=== PATIENT | female | born 1965 | race Caucasian/White ===

== ENCOUNTER 2017-08-04 20:47 | Inpatient (IN) | payer OTHER ==
[2017-08-04] MEDS ORDERED: methylPREDNISolone SOD SUCCI 125 MG/2 ML VIAL IV STA (22:15)
[2017-08-04] MEDS ORDERED: LEVOFLOXACIN 750MG-D5W PMX 750 MG in DEXTROSE/WATER 1 150ML.BAG IVPB STA (22:15)
[2017-08-04] MEDS ORDERED: SODIUM CHLORIDE 0.9% 1,000 ML IV STA (22:15)
[2017-08-04] MEDS ORDERED: IPRATROPIUM-ALBUTEROL 3 ML NEB INHALATION STA (22:15)
[2017-08-04] MEDS ORDERED: SODIUM CHLORIDE 0.9% 500 ML IV STA (22:15)
[2017-08-04] MEDS ORDERED: ACETAMINOPHEN TAB 500 MG TAB PO STA (22:16)
[2017-08-04] MEDS ORDERED: KETOROLAC 30 MG/ML 1 ML VIAL IVP STA (22:16)
--- NOTE | 2017-08-04 22:23 | ED ---
SOB HPI - General Chief Complaint: Shortness of Breath Stated Complaint: Diff Breathing Time Seen by Provider: 08/04/17 22:05 Source: patient Mode of arrival: ambulatory Limitations: no limitations - History of Present Illness Initial Comments: This 51-year-old white female presents with a complaint of shortness of breath. She has had a cough with occasional yellow to greenish production. She's felt some chills but has not measured any temperature. She has some chronic shortness of breath due to her underlying COPD but states that her symptoms are worse over the past couple of days. She's had occasional pain into her bilateral lower chest. She does present with a fever. She states that the humidity and high temperatures have been causing her COPD it is the worse recently. She's been taking her breathing treatments with limited relief. She denies any leg pain or swelling. No other complaints or modifying factors. - Related Data Home Medications Medication Instructions Recorded Confirmed Aspirin 81 mg PO DAILY 10/30/16 08/04/17 Cholecalciferol [Vitamin D3] 5,000 unit PO DAILY 10/30/16 08/04/17 Gabapentin [Neurontin] 600 mg PO TID PRN 10/30/16 08/04/17 HYDROcodone/APAP 5-325MG [[place] 1 tab PO DAILY PRN 10/30/16 08/04/17 5-325] Levothyroxine Sodium [Synthroid] 75 mcg PO DAILY 10/30/16 08/04/17 Mometasone/Formoterol [Dulera 200 2 puff INHALATION RT-BID 10/30/16 08/04/17 Mcg/5 Mcg Inhaler] Tiotropium 18 Mcg/Puff [Spiriva] 1 cap INHALATION RT-DAILY 10/30/16 08/04/17 traMADol HCL [Ultram] 50 mg PO TID PRN 10/30/16 08/04/17 Albuterol Inhaler [Ventolin Hfa 2 puff INHALATION RT-QID PRN 08/04/17 08/04/17 Inhaler] Albuterol Nebulized [Ventolin 2.5 mg INHALATION RT-QID PRN 08/04/17 08/04/17 Nebulized] Butalb/APAP/Caff 50-325-40Mg 1 tab PO Q6H PRN 08/04/17 08/04/17 [Fioricet 50-325-40] Propranolol HCl [Inderal Xl] 80 mg PO DAILY 08/04/17 08/04/17 traMADol HCL [Ultram] 100 mg PO TID PRN 08/04/17 08/04/17 Allergies Allergy/AdvReac Type Severity Reaction Status Date / Time No Known Allergies Allergy Verified 08/04/17 23:09 Review of Systems ROS Statement: Those systems with pertinent positive or pertinent negative responses have been documented in the HPI. ROS Other: All systems not noted in ROS Statement are negative. Past Medical History Past Medical History: COPD Additional Past Medical History / Comment(s): will solis History of Any Multi-Drug Resistant Organisms: None Reported Past Surgical History: Section Past Psychological History: Anxiety, Depression Smoking Status: Current every day smoker Past Alcohol Use History: None Reported Past Drug Use History: None Reported General Exam - General Exam Comments Initial Comments: GENERAL: The patient is well nourished and well hydrated. VITAL SIGNS: Heart rate, blood pressure, respiratory rate reviewed as recorded in nurse's notes. EYES: Pupils are round and reactive. Extraocular movements are intact. No conjunctival / lid redness or swelling. ENT: No external evidence of injury, swelling, or ecchymosis. Airway is patent. Throat is clear. NECK: Nontender. No swelling or evidence of injury. No subcutaneous emphysema. Trachea is midline. No thyroid mass. HEART: Regular rate and rhythm. Good peripheral pulses. LUNGS/CHEST: There is decreased aeration noted bilaterally with occasional wheeze. No ecchymosis, subcutaneous emphysema, or tenderness. ABDOMEN: Abdomen soft without tenderness. No palpable masses or organomegaly. No peritoneal signs. No abdominal wall swelling or ecchymosis. EXTREMITIES: No extremity tenderness. Normal muscle tone and function. No thoracolumbar tenderness. NEUROLOGIC: Sensation is grossly intact. Cranial nerve exam reveals face is symmetrical, tongue is midline, speech is clear. SKIN: No abrasions or ecchymosis is noted. No induration or masses noted. PSYCHIATRIC: Alert and oriented. Appropriate behavior and judgment. Limitations: no limitations Course Vital Signs 08/04/17 08/04/17 08/04/17 21:35 22:34 22:38 Temperature 100.7 F H Pulse Rate 95 80 100 Respiratory 22 22 Rate Blood Pressure 114/63 114/68 O2 Sat by Pulse 95 98 Oximetry 08/04/17 08/04/1717 23:13 23:22 00:13 Temperature 102.4 F H Pulse Rate 100 86 Respiratory 22 Rate Blood Pressure 102/58 O2 Sat by Pulse 97 Oximetry Medical Decision Making - Medical Decision Making The patient was seen and examined. All diagnostics were reviewed. An IV is established and she does receive some Levaquin and Toradol and IV fluids intravenously. She also received some Tylenol orally for her fever. She receives 2 DuoNeb breathing treatments. The chest x-ray does show evidence of a right lower lobe infiltrate/pneumonia. The laboratory shows evidence for leukocytosis. It is felt as though she does have underlying COPD and now has a pneumonia as well and that she would require admission to the hospital. The case is discussed with internal medicine and they're agreeable to admission. - Lab Data Result diagrams: 08/04/17 22:28 08/04/17 22:28 Lab Results 08/04/17 08/04/17 08/04/17 Range/Units 22:28 22:28 22:28 WBC 15.6 H (3.8-10.6) k/uL RBC 4.72 (3.80-5.40) m/uL Hgb 14.1 (11.4-16.0) gm/dL Hct 42.3 (34.0-46.0) % MCV 89.5 (80.0-100.0) fL MCH 29.8 (25.0-35.0) pg MCHC 33.3 (31.0-37.0) g/dL RDW 13.7 (11.5-15.5) % Plt Count 251 (150-450) k/uL Neutrophils % 90 % Lymphocytes % 5 % Monocytes % 4 % Eosinophils % 1 % Basophils % 0 % Neutrophils # 14.0 H (1.3-7.7) k/uL Lymphocytes # 0.8 L (1.0-4.8) k/uL Monocytes # 0.6 (0-1.0) k/uL Eosinophils # 0.1 (0-0.7) k/uL Basophils # 0.0 (0-0.2) k/uL PT (9.0-12.0) sec INR (<1.2) APTT (22.0-30.0) sec Sodium 135 L (137-145) mmol/L Potassium 3.7 (3.5-5.1) mmol/L Chloride 99 (98-107) mmol/L Carbon Dioxide 23 (22-30) mmol/L Anion Gap 13 mmol/L BUN 5 L (7-17) mg/dL Creatinine 0.70 (0.52-1.04) mg/dL Est GFR (MDRD) Af Amer >60 (>60 ml/min/1.73 sqM) Est GFR (MDRD) Non-Af >60 (>60 ml/min/1.73 sqM) Glucose 102 H (74-99) mg/dL Calcium 9.4 (8.4-10.2) mg/dL Total Bilirubin 0.8 (0.2-1.3) mg/dL AST 30 (14-36) U/L ALT 73 H (9-52) U/L Alkaline Phosphatase 90 (38-126) U/L Total Creatine Kinase 28 L (30-135) U/L CK-MB (CK-2) 0.4 (0.0-2.4) ng/mL CK-MB (CK-2) Rel Index 1.4 Troponin I <0.012 (0.000-0.034) ng/mL Total Protein 6.5 (6.3-8.2) g/dL Albumin 3.7 (3.5-5.0) g/dL 08/04/17 Range/Units 22:28 WBC (3.8-10.6) k/uL RBC (3.80-5.40) m/uL Hgb (11.4-16.0) gm/dL Hct (34.0-46.0) % MCV (80.0-100.0) fL MCH (25.0-35.0) pg MCHC (31.0-37.0) g/dL RDW (11.5-15.5) % Plt Count (150-450) k/uL Neutrophils % % Lymphocytes % % Monocytes % % Eosinophils % % Basophils % % Neutrophils # (1.3-7.7) k/uL Lymphocytes # (1.0-4.8) k/uL Monocytes # (0-1.0) k/uL Eosinophils # (0-0.7) k/uL Basophils # (0-0.2) k/uL PT 11.1 (9.0-12.0) sec INR 1.1 (<1.2) APTT 30.7 H (22.0-30.0) sec Sodium (137-145) mmol/L Potassium (3.5-5.1) mmol/L Chloride (98-107) mmol/L Carbon Dioxide (22-30) mmol/L Anion Gap mmol/L BUN (7-17) mg/dL Creatinine (0.52-1.04) mg/dL Est GFR (MDRD) Af Amer (>60 ml/min/1.73 sqM) Est GFR (MDRD) Non-Af (>60 ml/min/1.73 sqM) Glucose (74-99) mg/dL Calcium (8.4-10.2) mg/dL Total Bilirubin (0.2-1.3) mg/dL AST (14-36) U/L ALT (9-52) U/L Alkaline Phosphatase (38-126) U/L Total Creatine Kinase (30-135) U/L CK-MB (CK-2) (0.0-2.4) ng/mL CK-MB (CK-2) Rel Index Troponin I (0.000-0.034) ng/mL Total Protein (6.3-8.2) g/dL Albumin (3.5-5.0) g/dL Disposition Clinical Impression: Fever, COPD exacerbation, Pneumonia, Leukocytosis Disposition: ADMITTED IP TO THIS [facility] Condition: Fair Time of Disposition: 00:27 Decision Date: 08/05/17 Decision Time: 00:27
[2017-08-04 22:45] LABS: Basophils % (A) 0 %; CHCM 33.7; Eosinophils # (A) 0.1 k/uL (0-0.7); Eosinophils % (A) 1 %; HCT 42.3 % (34.0-46.0); HDW 2.18; HGB 14.1 gm/dL (11.4-16.0); Luc # (Auto) 0.12; Luc % (Auto) 1; Lymphocytes # (A) 0.8 k/uL (1.0-4.8); Lymphocytes % (A) 5 %; MCH 29.8 pg (25.0-35.0); MCHC 33.3 g/dL (31.0-37.0); MCV 89.5 fL (80.0-100.0); Mean Platelet Volume 7.2; Monocytes # (A) 0.6 k/uL (0-1.0); Monocytes % (A) 4 %; Neutrophils % (A) 90 %; RBC 4.72 m/uL (3.80-5.40); RDW 13.7 % (11.5-15.5); WBC 15.6 k/uL (3.8-10.6); WBC (Perox) 15.65
[2017-08-04 22:55] LABS: INR 1.1 (<1.2); Prothrombin Time 11.1 sec (9.0-12.0)
[2017-08-04 23:03] LABS: ALT 73 U/L (9-52); AST 30 U/L (14-36); Alkaline Phosphatase 90 U/L (38-126); Anion Gap 13 mmol/L; Blood Urea Nitrogen 5 mg/dL (7-17); Calcium 9.4 mg/dL (8.4-10.2); Carbon Dioxide 23 mmol/L (22-30); Chloride 99 mmol/L (98-107); Glucose 102 mg/dL (74-99); Non-African American GFR(MDRD) >60 (>60 ml/min/1.73 sqM); Potassium 3.7 mmol/L (3.5-5.1); Sodium 135 mmol/L (137-145); Total Bilirubin 0.8 mg/dL (0.2-1.3); Total Protein 6.5 g/dL (6.3-8.2)
[2017-08-04 23:11] LABS: Creatine Kinase 28 U/L (30-135)
[2017-08-04 23:19] LABS: Partial Thromboplastin Time 30.7 sec (22.0-30.0)
[2017-08-04 23:24] LABS: Creatine Kinase MB 0.4 ng/mL (0.0-2.4); Troponin I <0.012 ng/mL (0.000-0.034)
--- NOTE | 2017-08-04 23:55 | XR ---
EXAMINATION TYPE: XR chest 2V DATE OF EXAM: 08/04/2017 COMPARISON: 07/21/2017 HISTORY: Difficulty breathing TECHNIQUE: Frontal and lateral views of the chest are obtained. FINDINGS: There is some patchy infiltrate in the right midlung in the superior segment of the right lower lobe. There is pulmonary hyperinflation and flattening of the diaphragm. Heart size is normal. There is no heart failure. There are chest leads. Bony thorax is intact. IMPRESSION: There is new right lower lobe pneumonia compared to last exam. COPD. Normal heart.
[2017-08-05] MEDS ORDERED: PNEUMONIA PROTOCOL UTILIZED 1 EACH MISC PO PRN (00:27)
[2017-08-05] MEDS ORDERED: traMADol 50 MG TAB PO PRN (00:29)
[2017-08-05] MEDS ORDERED: BUTALB/APAP/CAFF 50-325-40MG TAB PO PRN (00:29)
[2017-08-05] MEDS ORDERED: GABAPENTIN 300 MG CAP PO PRN (00:29)
[2017-08-05] MEDS ORDERED: SODIUM CHLORIDE 0.9% 1,000 ML IV ONE (01:41)
--- NOTE | 2017-08-05 01:44 | P.HPIM ---
History of Present Illness H&P Date: 08/05/17 Chief Complaint: Shortness of breath and cough The patient is a 51-year-old female with a past medical history of COPD, not known to be auction dependent who presents to the ER with chief complaint of progressive exertional dyspnea over the last week with intermittently productive cough that started yesterday with subjective fevers chills night sweats and some nausea. The patient is a former smoker noted to be in remission for the last 2 months also complains of diffuse muscle aches joint aches and back pain. She reports increasing shortness of breath with increasing humidity that we've been experiencing over the last few days she denies any sick contacts or recent travel. She denies any other complaints or modifying or mitigating factors. In the ER she had routine labs chest x-ray was consistent with a right middle lobe infiltrate with a leukocytosis of 15.6 and a fever of 102.4. She was started on Solu-Medrol Levaquin and given breathing treatments and placed on supplemental oxygen in the ER Review of Systems All other 14 point review of systems are negative except per HPI Past Medical History Past Medical History: COPD Additional Past Medical History / Comment(s): will solis History of Any Multi-Drug Resistant Organisms: None Reported Past Surgical History: Section Past Psychological History: Anxiety, Depression Smoking Status: Current every day smoker Past Alcohol Use History: None Reported Past Drug Use History: None Reported Medications and Allergies Home Medications Medication Instructions Recorded Confirmed Type Aspirin 81 mg PO DAILY 10/30/16 08/04/17 History Cholecalciferol [Vitamin D3] 5,000 unit PO DAILY 10/30/16 08/04/17 History Gabapentin [Neurontin] 600 mg PO TID PRN 10/30/16 08/04/17 History HYDROcodone/APAP 5-325MG [[place] 1 tab PO DAILY PRN 10/30/16 08/04/17 History 5-325] Levothyroxine Sodium [Synthroid] 75 mcg PO DAILY 10/30/16 08/04/17 History Mometasone/Formoterol [Dulera 200 2 puff INHALATION RT-BID 10/30/16 08/04/17 History Mcg/5 Mcg Inhaler] Tiotropium 18 Mcg/Puff [Spiriva] 1 cap INHALATION RT-DAILY 10/30/16 08/04/17 History traMADol HCL [Ultram] 50 mg PO TID PRN 10/30/16 08/04/17 History Albuterol Inhaler [Ventolin Hfa 2 puff INHALATION RT-QID PRN 08/04/17 08/04/17 History Inhaler] Albuterol Nebulized [Ventolin 2.5 mg INHALATION RT-QID PRN 08/04/17 08/04/17 History Nebulized] Butalb/APAP/Caff 50-325-40Mg 1 tab PO Q6H PRN 08/04/17 08/04/17 History [Fioricet 50-325-40] Propranolol HCl [Inderal Xl] 80 mg PO DAILY 08/04/17 08/04/17 History traMADol HCL [Ultram] 100 mg PO TID PRN 08/04/17 08/04/17 History Allergies Allergy/AdvReac Type Severity Reaction Status Date / Time No Known Allergies Allergy Verified 08/04/17 23:09 Physical Exam Vitals: Vital Signs Temp Pulse Resp BP Pulse Ox 08/05/17 01:06 64 22 90/62 97 08/05/17 00:13 86 22 102/58 97 08/04/17 23:22 102.4 F H 08/04/17 23:13 100 08/04/17 22:38 100 08/04/17 22:34 80 22 114/68 98 08/04/17 21:35 100.7 F H 95 22 114/63 95 Intake and Output 08/04/17 08/04/17 08/05/17 14:59 22:59 06:59 Other: Weight 58.967 kg Patient Weight 08/05/17 06:59 Weight 58.967 kg Constitutional: No acute distress, conversant, pleasant Eyes: Anicteric sclerae, moist conjunctiva, no lid-lag, PERRLA ENMT: NC/AT,Oropharynx clear, no erythema, exudates Neck:Supple, FROM, no masses, or JVD, No carotid bruits; No thyromegaly Lungs: Clear to auscultation, Clear to percussion, Normal respiratory effort, no accessory muscle use Cardiovascular: Heart regular in rate and rhythm, No murmurs, gallops, or rubs no peripheral edema Abdominal: Soft Nontender, nom distended, no guarding, no rebound or rigidity, Normoactive bowel sounds No hepatomegaly, No splenomegaly, No palpable mass No abdominal wall hernia noted Skin: Normal temperature, tone, texture, turgor, No induration No subcutaneous nodules, No rash, lesions, No ulcers Extremities:No digital cyanosis No clubbing, Pedal pulses intact and symmetrical Radial pulses intact and symmetrical Normal gait and station, No calf tenderness Psychiatric: Alert and oriented to person, place and time, Appropriate affect Intact judgement Neuro: Muscles Strength 5/5 in all 4 extremities, Sensation to light touch grossly present throughout, Cranial nerves II-XII grossly intact. No focal sensory deficits Results CBC & Chem 7: 08/04/17 22:28 08/04/17 22:28 Labs: Abnormal Lab Results - Last 24 Hours (Table) 08/04/17 08/04/17 08/04/17 Range/Units 22:28 22:28 22:28 WBC 15.6 H (3.8-10.6) k/uL Neutrophils # 14.0 H (1.3-7.7) k/uL Lymphocytes # 0.8 L (1.0-4.8) k/uL APTT (22.0-30.0) sec Sodium 135 L (137-145) mmol/L BUN 5 L (7-17) mg/dL Glucose 102 H (74-99) mg/dL ALT 73 H (9-52) U/L Total Creatine Kinase 28 L (30-135) U/L 08/04/17 Range/Units 22:28 WBC (3.8-10.6) k/uL Neutrophils # (1.3-7.7) k/uL Lymphocytes # (1.0-4.8) k/uL APTT 30.7 H (22.0-30.0) sec Sodium (137-145) mmol/L BUN (7-17) mg/dL Glucose (74-99) mg/dL ALT (9-52) U/L Total Creatine Kinase (30-135) U/L Assessment and Plan (1) COPD exacerbation Status: Acute (2) Sepsis Status: Acute (3) CAP (community acquired pneumonia) Status: Acute (4) Hyponatremia Status: Acute Plan: The patient is admitted with acute COPD exacerbation anticipate a greater than 2 midnights stay due to the COPD exacerbation triggered by sepsis due to a right middle lobe community-acquired pneumonia, the patient was started on empiric IV antibiotics with IV Levaquin blood cultures are pending and urine cultures are pending sputum cultures have been ordered. Agree with continuing systemic steroids, scheduled and when necessary bronchodilator breathing treatments, urine Legionella strep influenza, have been ordered, continue with hydration and we'll continue to monitor her clinical course
[2017-08-05 02:32] LABS: Appearance,Urine Clear (Clear); Bilirubin,Urine Negative (Negative); Glucose,Urine (UA) Negative (Negative); Ketones,Urine 2+ (Negative); Leukocyte Esterase,Urine Negative (Negative); Nitrite,Urine Negative (Negative); PH, Urine 5.5 (5.0-8.0); Protein,Urine Negative (Negative); Specific Gravity,Urine 1.007 (1.001-1.035); UA Billing (MACRO vs. MICRO) CHEM; Urobilinogen,Urine <2.0 mg/dL (<2.0)
[2017-08-05] MEDS ORDERED: IPRATROPIUM-ALBUTEROL 3 ML NEB INHALATION SCH (04:00)
[2017-08-05] MEDS ORDERED: methylPREDNISolone SOD SUCCI 125 MG/2 ML VIAL IV SCH (06:00)
[2017-08-05 06:46] LABS: Basophils % (A) 0 %; CHCM 33.3; Eosinophils # (A) 0.1 k/uL (0-0.7); Eosinophils % (A) 1 %; HCT 37.8 % (34.0-46.0); HDW 2.13; HGB 12.2 gm/dL (11.4-16.0); Luc # (Auto) 0.02; Luc % (Auto) 0; Lymphocytes # (A) 0.6 k/uL (1.0-4.8); Lymphocytes % (A) 4 %; MCH 29.1 pg (25.0-35.0); MCHC 32.2 g/dL (31.0-37.0); MCV 90.4 fL (80.0-100.0); Mean Platelet Volume 8.1; Monocytes # (A) 0.2 k/uL (0-1.0); Monocytes % (A) 1 %; Neutrophils # (A) 13.5 k/uL (1.3-7.7); Neutrophils % (A) 94 %; RBC 4.18 m/uL (3.80-5.40); RDW 13.4 % (11.5-15.5); WBC 14.3 k/uL (3.8-10.6); WBC (Perox) 14.46
[2017-08-05 07:04] LABS: Anion Gap 9 mmol/L; Blood Urea Nitrogen 8 mg/dL (7-17); Calcium 8.9 mg/dL (8.4-10.2); Carbon Dioxide 19 mmol/L (22-30); Chloride 103 mmol/L (98-107); Glucose 121 mg/dL (74-99); Non-African American GFR(MDRD) >60 (>60 ml/min/1.73 sqM); Potassium 4.3 mmol/L (3.5-5.1); Sodium 131 mmol/L (137-145)
[2017-08-05] MEDS: SYMBICORT 160-4.5 MCG INHALER INHALATION SCH ×2 (07:27→19:06)
[2017-08-05] MEDS: IPRATROPIUM-ALBUTEROL 3 ML NEB INHALATION PRN ×2 (07:27→15:15)
[2017-08-05] MEDS: CHOLECALCIFEROL 1,000 UNIT TAB PO SCH (08:19)
[2017-08-05] MEDS: ENOXAPARIN 40 MG/0.4 ML SYRINGE SQ SCH (08:19)
[2017-08-05] MEDS: LEVOTHYROXINE 75 MCG TAB PO SCH (08:19)
[2017-08-05] MEDS: PROPRANOLOL LA 80 MG CAP.SA.24H PO SCH (08:19)
[2017-08-05] MEDS: ASPIRIN 81 MG PO SCH (08:19)
[2017-08-05] MEDS: SODIUM CHLORIDE 0.9% 1,000 ML IV SCH ×3 (09:27→20:53)
[2017-08-05] MEDS ORDERED: ALBUTEROL NEBULIZED 2.5 MG/3 ML INHALATION PRN (10:20)
--- NOTE | 2017-08-05 10:29 | P.PN ---
Subjective Principal diagnosis: shortness of breath Patient is a 51-year-old female with a history of COPD, gullian barre syndrome, and tobacco abuse presented with complaint of shortness of breath. She was found to have a pneumonia with sepsis. In the ER she was started on Solu-Medrol, Levaquin, and bronchodilators. She was also placed on supplemental oxygen. Patient seen and examined at bedside. She states her breathing is somewhat better than yesterday. She complains of being tired. She has a cough which is scantly productive. She states she is having a hard time bringing things up. She denies any nausea, vomiting, chest pain, or diarrhea. Objective - Vital Signs Vital signs: Vital Signs Temp 98.5 F 08/05/17 02:24 Pulse 68 08/05/17 09:28 Resp 17 08/05/17 09:28 BP 102/62 08/05/17 09:28 Pulse Ox 97 08/05/17 09:28 Intake & Output 08/04/17 08/05/17 08/05/17 18:59 06:59 18:59 Weight 58.967 kg - Exam General: Ill appearing, no distress, appears at stated age Derm: no rashes, no lesions Head: atraumatic, normocephalic, symmetric Eyes: EOMI, no lid lag, anicteric sclera ENT: no post nasal drip, no thrush Mouth: no lip lesion, mucus membranes moist Cardiovascular: S1S2 reg, no murmur, positive posterior tibial pulse bilateral, Lungs: Rhonchi bilateral bases, no accessory muscle use Abdominal: soft, nontender to palpation, no guarding, no appreciable organomegaly Ext: no gross muscle atrophy, no edema, no contractures Neuro: CN II-XI grossly intact, no focal neuro deficits Psych: Alert, oriented, appropriate affect - Labs CBC & Chem 7: 08/05/17 06:23 08/05/17 06:23 Labs: Abnormal Lab Results - Last 24 Hours (Table) 08/04/17 08/04/17 08/04/17 Range/Units 22:28 22:28 22:28 WBC 15.6 H (3.8-10.6) k/uL Neutrophils # 14.0 H (1.3-7.7) k/uL Lymphocytes # 0.8 L (1.0-4.8) k/uL APTT (22.0-30.0) sec Sodium 135 L (137-145) mmol/L Carbon Dioxide (22-30) mmol/L BUN 5 L (7-17) mg/dL Creatinine (0.52-1.04) mg/dL Glucose 102 H (74-99) mg/dL ALT 73 H (9-52) U/L Total Creatine Kinase 28 L (30-135) U/L Urine Ketones (Negative) 08/04/17 08/05/17 08/05/17 Range/Units 22:28 02:15 06:23 WBC (3.8-10.6) k/uL Neutrophils # (1.3-7.7) k/uL Lymphocytes # (1.0-4.8) k/uL APTT 30.7 H (22.0-30.0) sec Sodium 131 L (137-145) mmol/L Carbon Dioxide 19 L (22-30) mmol/L BUN (7-17) mg/dL Creatinine 0.50 L (0.52-1.04) mg/dL Glucose 121 H (74-99) mg/dL ALT (9-52) U/L Total Creatine Kinase (30-135) U/L Urine Ketones 2+ H (Negative) 08/05/17 Range/Units 06:23 WBC 14.3 H (3.8-10.6) k/uL Neutrophils # 13.5 H (1.3-7.7) k/uL Lymphocytes # 0.6 L (1.0-4.8) k/uL APTT (22.0-30.0) sec Sodium (137-145) mmol/L Carbon Dioxide (22-30) mmol/L BUN (7-17) mg/dL Creatinine (0.52-1.04) mg/dL Glucose (74-99) mg/dL ALT (9-52) U/L Total Creatine Kinase (30-135) U/L Urine Ketones (Negative) Assessment and Plan Plan: #Pneumonia with sepsis -IV fluids -Levaquin -Supplemental oxygen as needed -Follow chest x-ray until clear -Mucinex and flutter valve #Acute exacerbation of COPD Solu-Medrol, bronchodilators, pulmonary hygiene #Hypothyroidism -Continue with Synthroid #Hyponatremia -Suspect secondary to dehydration -Continue IV fluids -Repeat BMP this afternoon #Tobacco abuse -Cessation -Nicotine replacement DVT prophylaxis: Lovenox Discussed with: Patient Anticipated discharge: 48-[address]: home A total of 35 minutes was spent on the care of this complex patient more than 50 % of the time was spent in counseling and care coordination.
[2017-08-05] MEDS: IPRATROPIUM 0.5 MG/2.5 ML NEBU INHALATION SCH ×4 (11:15→19:07)
[2017-08-05] MEDS: HYDROcodone/APAP 5-325MG 1 EACH TAB PO PRN (13:42)
[2017-08-05] MEDS ORDERED: TRIMETHOBENZAMIDE 100 MG/ML 2 ML VIAL IM STA (14:46)
[2017-08-05] MEDS: methylPREDNISolone SOD SUCCI 125 MG/2 ML VIAL IV SCH ×2 (16:06→23:22)
[2017-08-05 17:13] LABS: Anion Gap 10 mmol/L; Blood Urea Nitrogen 10 mg/dL (7-17); Calcium 9.3 mg/dL (8.4-10.2); Carbon Dioxide 21 mmol/L (22-30); Chloride 105 mmol/L (98-107); Glucose 117 mg/dL (74-99); Non-African American GFR(MDRD) >60 (>60 ml/min/1.73 sqM); Potassium 4.2 mmol/L (3.5-5.1); Sodium 136 mmol/L (137-145)
[2017-08-05] MEDS: guaiFENesin 600 MG TABLET.ER PO SCH (21:11)
[2017-08-05] MEDS ORDERED: LEVOFLOXACIN 750MG-D5W PMX 750 MG in DEXTROSE/WATER 1 150ML.BAG IVPB SCH (23:00)
[2017-08-06] MEDS: IPRATROPIUM-ALBUTEROL 3 ML NEB INHALATION PRN (01:58)
[2017-08-06] MEDS: SODIUM CHLORIDE 0.9% 1,000 ML IV SCH (04:32)
[2017-08-06] MEDS: HYDROcodone/APAP 5-325MG 1 EACH TAB PO PRN (04:32)
[2017-08-06] MEDS: SYMBICORT 160-4.5 MCG INHALER INHALATION SCH (07:08)
[2017-08-06] MEDS: IPRATROPIUM 0.5 MG/2.5 ML NEBU INHALATION SCH ×2 (07:08→11:08)
[2017-08-06 07:35] VITALS: BP 101/69; PULSE 63; RESP 16; TEMP 97.8
[2017-08-06 08:06] LABS: Basophils % (A) 0 %; CH 29.5; CHCM 32.5; Eosinophils % (A) 0 %; HCT 34.5 % (34.0-46.0); HDW 2.22; HGB 11.1 gm/dL (11.4-16.0); Luc # (Auto) 0.06; Luc % (Auto) 1; Lymphocytes # (A) 0.5 k/uL (1.0-4.8); Lymphocytes % (A) 4 %; MCH 29.4 pg (25.0-35.0); MCHC 32.1 g/dL (31.0-37.0); MCV 91.4 fL (80.0-100.0); Mean Platelet Volume 7.7; Monocytes # (A) 0.5 k/uL (0-1.0); Monocytes % (A) 4 %; Neutrophils # (A) 11.3 k/uL (1.3-7.7); Neutrophils % (A) 90 %; RBC 3.77 m/uL (3.80-5.40); RDW 13.5 % (11.5-15.5); WBC 12.5 k/uL (3.8-10.6); WBC (Perox) 12.72
[2017-08-06 08:11] LABS: Anion Gap 10 mmol/L; Blood Urea Nitrogen 6 mg/dL (7-17); Calcium 9.3 mg/dL (8.4-10.2); Carbon Dioxide 23 mmol/L (22-30); Chloride 108 mmol/L (98-107); Glucose 139 mg/dL (74-99); Magnesium 1.8 mg/dL (1.6-2.3); Non-African American GFR(MDRD) >60 (>60 ml/min/1.73 sqM); Sodium 141 mmol/L (137-145)
[2017-08-06 08:15] LABS: Potassium 4.6 mmol/L (3.5-5.1)
[2017-08-06] MEDS: PROPRANOLOL LA 80 MG CAP.SA.24H PO SCH (08:24)
[2017-08-06] MEDS: methylPREDNISolone SOD SUCCI 125 MG/2 ML VIAL IV SCH (08:24)
[2017-08-06] MEDS: guaiFENesin 600 MG TABLET.ER PO SCH (08:25)
[2017-08-06] MEDS: ENOXAPARIN 40 MG/0.4 ML SYRINGE SQ SCH (08:25)
[2017-08-06] MEDS: CHOLECALCIFEROL 1,000 UNIT TAB PO SCH (08:25)
[2017-08-06] MEDS: ASPIRIN 81 MG PO SCH (08:25)
[2017-08-06] MEDS: LEVOTHYROXINE 75 MCG TAB PO SCH (08:25)
--- NOTE | 2017-08-06 08:47 | XR ---
EXAMINATION TYPE: XR chest 1V portable DATE OF EXAM: 08/06/2017 COMPARISON: 08/04/2017 HISTORY: Pneumonia follow-up TECHNIQUE: Single frontal view of the chest is obtained. FINDINGS: Patchy infiltrate in the right upper lobe. Underlying COPD suspected with hyperinflation o f the lungs. Blunting of the costophrenic angles likely related to hyperexpansion. Subsegmental parikh es left lung base most typical of atelectasis. Heart size normal. No obvious pneumothorax. Curvature the spine and diffuse osteopenia noted. IMPRESSION: 1. COPD with suspected right upper lobe patchy infiltrate.
--- NOTE | 2017-08-06 09:18 | P.DS ---
Providers Date of admission: 08/05/17 00:27 Expected date of discharge: 08/06/17 Attending physician: Saúl Mixon MD Consults: none Primary care physician: Nemo Quiros - Discharge Diagnosis(es) (1) CAP (community acquired pneumonia) Status: Acute (2) Sepsis Status: Acute (3) COPD exacerbation Status: Acute (4) Hyponatremia Status: Acute (5) Tobacco abuse Status: Acute Hospital Course: Patient is a 51-year-old female with a history of COPD, gullian barre syndrome, and tobacco abuse presented with complaint of shortness of breath. She was found to have a pneumonia with sepsis. In the ER she was started on Solu-Medrol, Levaquin, and bronchodilators. She was also placed on supplemental oxygen. She was admitted to the general medical floor for further monitoring and care. She was also started on Mucinex and a flutter valve. She had a rapid improvement in her breathing. By 08/06 inches able to ambulate without shortness rest. She was able to be weaned off supplemental oxygen. Her wheezing had resolved and she was feeling much improved. Her white blood cell count had decreased. She was determined stable for discharge home. She' ll complete a course of antibiotics and a steroid taper. She also has an appointment with pulmonary on August 25, and she will keep this appointment. Patient seen and examined at bedside. Feeling much improved. Still feeling tired and weak. Complains of not being able to sleep at night. States her wheezing has resolved, she is now having a productive cough which is much improved, and her pain has decreased. She would like to go home and sleep in her own bed. She has follow-up with pulmonary. Vital signs reviewed and stable. General: non toxic, no distress, appears at stated age Derm: no rashes, no lesions Head: atraumatic, normocephalic, symmetric Eyes: EOMI, no lid lag, anicteric sclera ENT: no post nasal drip, no thrush Mouth: no lip lesion, mucus membranes moist Cardiovascular: S1S2 reg, no murmur, positive posterior tibial pulse bilateral, Lungs: Rhonchi right base, no accessory muscle use Abdominal: soft, nontender to palpation, no guarding, no appreciable organomegaly Ext: no gross muscle atrophy, no edema, no contractures Neuro: CN II-XI grossly intact, no focal neuro deficits Psych: Alert, oriented, appropriate affect 6 A total of 35] minutes of time were spent preparing this complex discharge summary . Pertinent Studies: Chest x-ray on my review appears clear on 08/06 Procedures: None Patient Condition at Discharge: Good Plan - Discharge Summary New Discharge Prescriptions: New guaiFENesin [Mucinex] 600 mg PO Q12HR #30 tab Levofloxacin [Levaquin] 750 mg PO DAILY #7 tab predniSONE See Taper PO DIRECTED #30 tab Continue traMADol HCL [Ultram] 50 mg PO TID PRN PRN Reason: Moderate Pain Levothyroxine Sodium [Synthroid] 75 mcg PO DAILY HYDROcodone/APAP 5-325MG [[place] 5-325] 1 tab PO DAILY PRN PRN Reason: Breakthrough Pain Gabapentin [Neurontin] 600 mg PO TID PRN PRN Reason: Pain Cholecalciferol [Vitamin D3] 5,000 unit PO DAILY Tiotropium 18 Mcg/Puff [Spiriva] 1 cap INHALATION RT-DAILY Mometasone/Formoterol [Dulera 200 Mcg/5 Mcg Inhaler] 2 puff INHALATION RT-BID Aspirin 81 mg PO DAILY Albuterol Inhaler [Ventolin Hfa Inhaler] 2 puff INHALATION RT-QID PRN PRN Reason: Shortness Of Breath Albuterol Nebulized [Ventolin Nebulized] 2.5 mg INHALATION RT-QID PRN PRN Reason: Shortness Of Breath Butalb/APAP/Caff 50-325-40Mg [Fioricet 50-325-40] 1 tab PO Q6H PRN PRN Reason: Headache traMADol HCL [Ultram] 100 mg PO TID PRN PRN Reason: Severe Pain Propranolol HCl [Inderal Xl] 80 mg PO DAILY Discharge Medication List Aspirin 81 mg PO DAILY 10/30/16 [History] Cholecalciferol [Vitamin D3] 5,000 unit PO DAILY 10/30/16 [History] Gabapentin [Neurontin] 600 mg PO TID PRN 10/30/16 [History] HYDROcodone/APAP 5-325MG [[place] 5-325] 1 tab PO DAILY PRN 10/30/16 [History] Levothyroxine Sodium [Synthroid] 75 mcg PO DAILY 10/30/16 [History] Mometasone/Formoterol [Dulera 200 Mcg/5 Mcg Inhaler] 2 puff INHALATION RT-BID [History] Tiotropium 18 Mcg/Puff [Spiriva] 1 cap INHALATION RT-DAILY 10/30/16 [History] traMADol HCL [Ultram] 50 mg PO TID PRN 10/30/16 [History] Albuterol Inhaler [Ventolin Hfa Inhaler] 2 puff INHALATION RT-QID PRN 08/04/17 [ History] Albuterol Nebulized [Ventolin Nebulized] 2.5 mg INHALATION RT-QID PRN 08/04/17 [ History] Butalb/APAP/Caff 50-325-40Mg [Fioricet 50-325-40] 1 tab PO Q6H PRN 08/04/17 [ History] Propranolol HCl [Inderal Xl] 80 mg PO DAILY 08/04/17 [History] traMADol HCL [Ultram] 100 mg PO TID PRN 08/04/17 [History] Levofloxacin [Levaquin] 750 mg PO DAILY #7 tab 08/06/17 [Rx] guaiFENesin [Mucinex] 600 mg PO Q12HR #30 tab 08/06/17 [Rx] predniSONE See Taper PO DIRECTED #30 tab 08/06/17 [Rx] Follow up Appointment(s)/Referral(s): Nemo Quiros DO [Primary Care Provider] - 08/13/17 1:30 pm Lilly Shine MD [STAFF PHYSICIAN] - 08/25/17 3:15 pm Patient Instructions/Handouts: Prednisone (By mouth), Guaifenesin (By mouth), Levofloxacin (By mouth), COPD (Chronic Obstructive Pulmonary Disease) (DC), Leukocytosis (DC), Pneumonia (DC) Activity/Diet/Wound Care/Special Instructions: regular diet, activity as tolerated Please use your nebulized albuterol every 4 hours while awake for the next 7-10 days Discharge Disposition: HOME SELF-CARE
== END 2017-08-06 11:02 | disposition home or self-care (01) | DRG 871 ==
LOC: EC 20:47 → 5MS5E 08-05 00:27
PROVIDERS: ADMIT Family Medicine; ATTEND Family Medicine
DX: A41.9 Sepsis, unspecified organism (principal); J18.9 Pneumonia, unspecified organism; E87.1 Hypo-osmolality and hyponatremia; J44.0 Chronic obstructive pulmonary disease with (acute) lower respiratory infection; J44.1 Chronic obstructive pulmonary disease with (acute) exacerbation; F17.200 Nicotine dependence, unspecified, uncomplicated; F32.9 Major depressive disorder, single episode, unspecified; F41.9 Anxiety disorder, unspecified; Z79.82 Long term (current) use of aspirin; Z79.899 Other long term (current) drug therapy; Z86.69 Personal history of other diseases of the nervous system and sense organs
CPT/HCPCS: 36415; 71010; 71020; 80048; 80053; 81003; 82550; 82553; 83605; 83735; 84484; 85025; 85610; 85730; 86003; 86317; 87040; 87070; 87205; 87449; 87502; 93005; 94640; 94667; 96361; 96365; 96366; 96372; 96375; 96376; 99285

== ENCOUNTER → 2018-10-22 | Outpatient (CLI) | payer OTHER ==
--- NOTE | 2018-10-22 14:47 | CT ---
EXAMINATION TYPE: CT chest wo con DATE OF EXAM: 10/22/2018 COMPARISON: 10/30/2016 HISTORY: EMPHYSEMA, SOB CT DLP: 299 mGycm, Automated exposure control for dose reduction was used. CONTRAST: Performed injected with 0 mL of Isovue 300. TECHNIQUE: Axial images were obtained at 5 mm thick sections. Reconstructed images are reviewed on [employer] computer in the coronal plane. FINDINGS: Small Portion of the thyroid visualized is normal. There is some irregular scarring in the posterior right upper lung field. Series 4 image 15. This was present on the comparison and appears less focal currently. Extensive emphysematous changes are pres ent. Suspicious masses are not evident. No enlarged mediastinal or hilar adenopathy is evident. The ascending aorta diameter at the level o f the main pulmonary artery is 3.0 cm. The main pulmonary artery diameter at the bifurcation is 1.[address] sections are obtained through the upper abdomen. Abdomen is essentially unremarkable. IMPRESSIONS: 1. Extensive emphysematous changes. 2. Small amount of scarring may be in the posterior right upper lung field, present previously
== END | disposition home or self-care (01) ==
LOC: RADCTMAIN 14:15
PROVIDERS: ATTEND Internal Medicine Critical Care Medicine
DX: J43.9 Emphysema, unspecified (principal)
CPT/HCPCS: 71250